=== PATIENT | male | born 1980 | race Two or more races ===

== ENCOUNTER 2018-01-07 11:17 | Emergency (ER) | payer SELFPAY ==
[~2018-01-07 11:17] MED LIST: ACET-3017 PO; AMOX-362 PO; AMOX-559 PO; AMOX500T10 PO; AZIT-1 PO; CARB-91 PO; CEP500 PO; CEPH-13 PO; CEPH250C37 PO; CIP500 PO; CIPR-326 PO; CYCL10TA29 PO; DICL25CA6 PO; GABA-490 PO; HYDR-3503 PO; HYDR-4305 PO; HYDR-4309 PO; HYDR-6016 PO; IBUP600T22 PO; KET10 PO; LISI-362 PO; LISI-374 PO; LISI20TA29 PO; LOR5 PO; LOR5/325 PO; LORA-1455 PO; LORA-1456 PO; METH4TAB66 PO; MULT-885 PO; NO MEDS; ONDA4TAB PO; OXYC-865 PO; OXYC1TAB54 GT; OXYM15MI14 NS; PENI-24 PO; PER PO; PRED20TA6 PO; PRO25 PO; PROM-110 PO; SERT25TA87 PO; TOP25 PO; TOPI-120 PO; TOPI-121 PO; TOPI50TA99 PO; TRA50 PO; TRAM-420 PO; TRAM-627 PO; zyrtec
[2018-01-07 11:20] VITALS: BP 157/101
--- NOTE | 2018-01-07 11:25 | ER Report ---
History and Physical Time Seen By MD: 11:25 HPI/ROS CHIEF COMPLAINT: Suicide attempt HISTORY OF PRESENT ILLNESS: This is a 37-year-old male who presents to the emergency department via police for suicidal attempt. Patient states that over the last several months he has been dealing with his mothers dementia he moved up briefly from [place] to [place] to help with her in the house as well as his and 2 kids, his and 2 kids decided to go back to [place]. HEENT his have been having some problems at home and the patient states that with the decline in support and all the stressors with his family he finally reached a "breaking point" and over the last couple days has had some thoughts of suicide on [place] kill himself, he decided on hanging himself. Patient states that he did screw a board to the ceiling, he thought that the screws were in the studs and wrapped appropriate around the board put the news around his neck and step-off chair and the port broke and he fell to the ground. Patient states he had a brief loss of consciousness and when he came to he sat on the couch. He also states that prior to the himself he was on the phone with his and when having up she called 911 alerting the police department. When they arrived they were pounding on the door patient opened the door and he did come to the emergency department qualitatively. The police did detain him. Patient does have ligature tiwari around his neck. Patient is alert and oriented at this time. Patient is in no distress and cooperative. Patient denies any recent chest pain or shortness of breath, headaches or illnesses. REVIEW OF SYSTEMS: Constitutional: No fever, no chills. Eyes: No discharge. ENT: No sore throat. Cardiovascular: No chest pain, no palpitations. Respiratory: No cough, no shortness of breath. Gastrointestinal: No abdominal pain, no vomiting. Genitourinary: No hematuria. Musculoskeletal: No back pain. Skin: As above. Neurological: No headache. Psych: As above. Allergies: Coded Allergies: celecoxib (Verified Allergy, Mild, HIVES, 01/07/18) ibuprofen (Verified Allergy, Mild, hives, 01/07/18) Shellfish (Verified Allergy, Unknown, THROAT ITCHES AND HIVES, 01/07/18) Home Meds Discontinued Reported Medications Topiramate (TOPAMAX) 100 Mg Tablet, 100 MG PO BID 03/27/16 Lisinopril (LISINOPRIL) 40 Mg Tablet, 40 MG PO QDAY, TAB 03/27/16 Discontinued Scripts Prednisone (PREDNISONE) 20 Mg Tablet, 20 MG PO BID, #9 TAB Prov:[facility] 03/27/16 Ondansetron (ZOFRAN ODT) 4 Mg Tab.rapdis, 4 MG PO Q6H Y for NAUSEA/VOMITING, # 20 TAB.DACIA Prov:[facility] 03/27/16 Azithromycin (ZITHROMAX) 250 Mg Tablet, 1 TAB PO QDAY, #4 TAB Prov:[facility] 03/27/16 Oxycodone Hcl/Acetaminophen (PERCOCET 5-325 MG TABLET) 1 Each Tablet, 1 EACH PO Q4-6H Y for PAIN, #12 TAB Prov:[facility] 03/27/16 Tramadol Hcl (TRAMADOL HCL) 50 Mg Tablet, 50 MG PO Q4-6H Y for PAIN, #12 TAB Prov:[facility] 03/26/16 Past Medical/Surgical History Patient has a past medical and surgical history of seizures, migraines, hypertension, depression, suicide attempt, left knee surgery. Reviewed Nurses Notes: Yes Hx Smoking: No Smoking Status: Never Smoker Exposure to Second Hand Smoke?: No Hx Substance Use Disorder: No Hx Alcohol Use: No Constitutional Vital Sign - Last 24 Hours 01/07/18 11:20 Temp 98.2 Pulse 94 Resp 18 B/P (MAP) 157/101 Pulse Ox 95 O2 Delivery Room Air Physical Exam General Appearance: The patient is alert, has no immediate need for airway protection and no signs of toxicity. Eyes: Pupils equal and round no pallor or injection. Nose subconjunctival hemorrhage. ENT, Mouth: Mucous membranes are moist. No hemotympanum. Respiratory: There are no retractions, lungs are clear to auscultation. Cardiovascular: Regular rate and rhythm, no murmurs, clicks or rubs. No bruits. Gastrointestinal: Abdomen is soft and non tender, no masses, bowel sounds normal. Neurological: Alert and oriented 4. Moving all extremities. Following all commands. No focal neuro deficits. Cranial nerves II through XII intact. Skin: Warm and dry, no rashes. Ligature tiwari to the neck no crepitus or obvious deformities. Musculoskeletal: Neck is supple non tender. No crepitus or obvious deformities , no step-offs to the C-spine. Extremities are nontender, nonswollen and have full range of motion. [ ] DIFFERENTIAL DIAGNOSIS: After history and physical exam differential diagnosis was considered for suicide attempt. Medical Decision Making Data Points Result Diagram: 01/07/18 1130 01/07/18 1130 Laboratory Hematology Test 01/07/18 11:30 01/07/18 12:58 Red Blood Count 5.93 M/uL (4.00-5.60) Mean Corpuscular Volume 85.1 fL (80.0-96.0) Mean Corpuscular Hemoglobin 29.6 pg (26.0-33.0) Mean Corpuscular Hemoglobin Concent 34.8 g/dL (32.0-36.0) Red Cell Distribution Width 12.8 % (11.5-14.5) Mean Platelet Volume 9.1 fL (7.2-11.1) Neutrophils (%) (Auto) 60.9 % (39.4-72.5) Lymphocytes (%) (Auto) 24.0 % (17.6-49.6) Monocytes (%) (Auto) 8.6 % (4.1-12.4) Eosinophils (%) (Auto) 5.0 % (0.4-6.7) Basophils (%) (Auto) 1.5 % (0.3-1.4) Nucleated RBC Relative Count (auto) 0.7 /100WBC Neutrophils # (Auto) 3.2 K/uL (2.0-7.4) Lymphocytes # (Auto) 1.3 K/uL (1.3-3.6) Monocytes # (Auto) 0.5 K/uL (0.3-1.0) Eosinophils # (Auto) 0.3 K/uL (0.0-0.5) Basophils # (Auto) 0.1 K/uL (0.0-0.1) Nucleated RBC Absolute Count (auto) 0.04 K/uL Sodium Level 141 mmol/L (137-145) Potassium Level 3.6 mmol/L (3.5-5.0) Chloride Level 97 mmol/L (98-107) Carbon Dioxide Level 31 mmol/L (22-30) Blood Urea Nitrogen 16 mg/dl (9-21) Creatinine 1.00 mg/dl (0.66-1.25) Glomerular Filtration Rate Calc > 60.0 Random Glucose 89 mg/dl (75-110) Calcium Level 9.7 mg/dl (8.4-10.2) Magnesium Level 2.1 mg/dl (1.7-2.2) Total Bilirubin 0.3 mg/dl (0.2-1.3) Aspartate Amino Transf (AST/SGOT) 25 U/L (0-35) Alanine Aminotransferase (ALT/SGPT) 28 U/L (0-56) Alkaline Phosphatase 77 U/L (0-126) Total Protein 7.9 gm/dl (6.3-8.2) Albumin 4.2 g/dl (3.5-5.0) Thyroid Stimulating Hormone (TSH) 2.32 uIU/ml (0.46-4.68) Salicylates Level < 10 mg/L Salicylate Last Dose Date unk Acetaminophen Level < 10 ug/ml Serum Alcohol < 10 mg/dl Urine Color Yellow Urine Clarity Clear Urine pH 6.0 pH (4.8-9.5) Urine Specific [place] 1.027 Urine Protein Negative mg/dL (NEGATIVE) Urine Glucose (UA) Negative mg/dL (NEGATIVE) Urine Ketones Negative mg/dL (NEGATIVE) Urine Blood Small (NEGATIVE) Urine Nitrite Negative (NEGATIVE) Urine Bilirubin Negative (NEGATIVE) Urine Urobilinogen Negative mg/dL (0.2-1.9) Urine Leukocyte Esterase Negative (NEGATIVE) Urine RBC 2 /HPF (0-2/HPF) Urine WBC <1 /HPF (0-5/HPF) Urine Squamous Epithelial Cells Few /LPF (</=FEW) Urine Bacteria Negative /HPF (NONE-FEW) Urine Mucus None /HPF (NONE-FEW) Urine Opiates Screen Negative Urine Barbiturates Screen Negative Ur Tricyclic Antidepressants Screen Negative Urine Phencyclidine Screen Negative Urine Amphetamines Screen Positive Urine Benzodiazepines Screen Negative Urine Cocaine Screen Negative Urine Cannabinoids Screen Negative Chemistry Test 01/07/18 11:30 01/07/18 12:58 White Blood Count 5.3 k/uL (4.5-11.0) Red Blood Count 5.93 M/uL (4.00-5.60) Hemoglobin 17.6 g/dL (14.0-18.0) Hematocrit 50.5 % (42.0-52.0) Mean Corpuscular Volume 85.1 fL (80.0-96.0) Mean Corpuscular Hemoglobin 29.6 pg (26.0-33.0) Mean Corpuscular Hemoglobin Concent 34.8 g/dL (32.0-36.0) Red Cell Distribution Width 12.8 % (11.5-14.5) Platelet Count 231 K/uL (150-450) Mean Platelet Volume 9.1 fL (7.2-11.1) Neutrophils (%) (Auto) 60.9 % (39.4-72.5) Lymphocytes (%) (Auto) 24.0 % (17.6-49.6) Monocytes (%) (Auto) 8.6 % (4.1-12.4) Eosinophils (%) (Auto) 5.0 % (0.4-6.7) Basophils (%) (Auto) 1.5 % (0.3-1.4) Nucleated RBC Relative Count (auto) 0.7 /100WBC Neutrophils # (Auto) 3.2 K/uL (2.0-7.4) Lymphocytes # (Auto) 1.3 K/uL (1.3-3.6) Monocytes # (Auto) 0.5 K/uL (0.3-1.0) Eosinophils # (Auto) 0.3 K/uL (0.0-0.5) Basophils # (Auto) 0.1 K/uL (0.0-0.1) Nucleated RBC Absolute Count (auto) 0.04 K/uL Glomerular Filtration Rate Calc > 60.0 Calcium Level 9.7 mg/dl (8.4-10.2) Magnesium Level 2.1 mg/dl (1.7-2.2) Total Bilirubin 0.3 mg/dl (0.2-1.3) Aspartate Amino Transf (AST/SGOT) 25 U/L (0-35) Alanine Aminotransferase (ALT/SGPT) 28 U/L (0-56) Alkaline Phosphatase 77 U/L (0-126) Total Protein 7.9 gm/dl (6.3-8.2) Albumin 4.2 g/dl (3.5-5.0) Thyroid Stimulating Hormone (TSH) 2.32 uIU/ml (0.46-4.68) Salicylates Level < 10 mg/L Salicylate Last Dose Date unk Acetaminophen Level < 10 ug/ml Serum Alcohol < 10 mg/dl Urine Color Yellow Urine Clarity Clear Urine pH 6.0 pH (4.8-9.5) Urine Specific [place] 1.027 Urine Protein Negative mg/dL (NEGATIVE) Urine Glucose (UA) Negative mg/dL (NEGATIVE) Urine Ketones Negative mg/dL (NEGATIVE) Urine Blood Small (NEGATIVE) Urine Nitrite Negative (NEGATIVE) Urine Bilirubin Negative (NEGATIVE) Urine Urobilinogen Negative mg/dL (0.2-1.9) Urine Leukocyte Esterase Negative (NEGATIVE) Urine RBC 2 /HPF (0-2/HPF) Urine WBC <1 /HPF (0-5/HPF) Urine Squamous Epithelial Cells Few /LPF (</=FEW) Urine Bacteria Negative /HPF (NONE-FEW) Urine Mucus None /HPF (NONE-FEW) Urine Opiates Screen Negative Urine Barbiturates Screen Negative Ur Tricyclic Antidepressants Screen Negative Urine Phencyclidine Screen Negative Urine Amphetamines Screen Positive Urine Benzodiazepines Screen Negative Urine Cocaine Screen Negative Urine Cannabinoids Screen Negative Toxicology Test 01/07/18 11:30 01/07/18 12:58 Salicylates Level < 10 mg/L Salicylate Last Dose Date unk Acetaminophen Level < 10 ug/ml Serum Alcohol < 10 mg/dl Urine Opiates Screen Negative Urine Barbiturates Screen Negative Ur Tricyclic Antidepressants Screen Negative Urine Phencyclidine Screen Negative Urine Amphetamines Screen Positive Urine Benzodiazepines Screen Negative Urine Cocaine Screen Negative Urine Cannabinoids Screen Negative Urinalysis Test 01/07/18 12:58 Urine Color Yellow Urine Clarity Clear Urine pH 6.0 pH (4.8-9.5) Urine Specific [place] 1.027 Urine Protein Negative mg/dL (NEGATIVE) Urine Glucose (UA) Negative mg/dL (NEGATIVE) Urine Ketones Negative mg/dL (NEGATIVE) Urine Blood Small (NEGATIVE) Urine Nitrite Negative (NEGATIVE) Urine Bilirubin Negative (NEGATIVE) Urine Urobilinogen Negative mg/dL (0.2-1.9) Urine Leukocyte Esterase Negative (NEGATIVE) Urine RBC 2 /HPF (0-2/HPF) Urine WBC <1 /HPF (0-5/HPF) Urine Squamous Epithelial Cells Few /LPF (</=FEW) Urine Bacteria Negative /HPF (NONE-FEW) Urine Mucus None /HPF (NONE-FEW) EKG/Imaging Imaging Location: [facility] [place] Patient: Benjamin Soto : 1980 Visit/Account:[id number] Date of Sevice: 01/07/2018 Examination: C-SPINE W/O CONTRAST, NECK SOFT TISSUE W CONTRAST Comparison: None. History: s/p hanging, cervical spine pain Procedure: Noncontrast multiplanar imaging of the cervical spine followed by contrast-enhanced soft tissue neck CT with 75 mL intravenous Isovue 370. One of the following dose optimization techniques was utilized in the performance of this exam: Automated exposure control; adjustment of the mA and/ or kV according to the patient's size; or use of an iterative reconstruction technique. Specific details can be referenced in the facility's radiology CT exam operational policy. Findings: CT cervical spine without contrast: Cervical vertebral body height and alignment is within normal limits. Atlantoaxial, craniocervical, facet, and cervicothoracic alignment is maintained. No vertebral body or posterior neural arch fracture. Disc spaces are within normal limits. No evidence of canal or foraminal narrowing. Visualized contents of the posterior fossa are unremarkable. CT soft tissue neck with contrast: Prevertebral and paraspinal soft tissues are within normal limits with no focal region of soft tissue inflammation. The major cervical vessels appear grossly normal. Salivary glands are symmetric and within normal limits. Parapharyngeal space fat is unremarkable. Thyroid is unremarkable. There are no pathologically enlarged lymph nodes. Airway is unremarkable. Visualized posterior fossa is unremarkable. Mild mucosal thickening along the visualized right nasal passage. Otherwise, the visualized paranasal sinuses and mastoid air cells are clear and well aerated. Multifocal dental disease with multiple dental caries and periapical erosions. Visualized upper thorax is unremarkable. IMPRESSION: 1. Negative cervical spine CT. 2. No evidence of acute disease in the cervical soft tissues. Of note, the cervical vasculature appears grossly normal but given the history, if there is a significant concern for arterial pathology this would be better characterized by CTA. 3. Severe chronic dental disease. Results were discussed with RAMYA SANTOS at 01/07/2018 1:03 PM. Report Dictated By: Yomi Benito MD at 01/07/2018 12:45 PM Report E-Signed By: Yomi Benito MD at 01/07/2018 1:05 PM WSN:[id number] Location: [facility] [place] Patient: Benjamin Soto : 1980 Visit/Account:[id number] Date of Sevice: 01/07/2018 Examination: C-SPINE W/O CONTRAST, NECK SOFT TISSUE W CONTRAST Comparison: None. History: s/p hanging, cervical spine pain Procedure: Noncontrast multiplanar imaging of the cervical spine followed by contrast-enhanced soft tissue neck CT with 75 mL intravenous Isovue 370. One of the following dose optimization techniques was utilized in the performance of this exam: Automated exposure control; adjustment of the mA and/ or kV according to the patient's size; or use of an iterative reconstruction technique. Specific details can be referenced in the facility's radiology CT exam operational policy. Findings: CT cervical spine without contrast: Cervical vertebral body height and alignment is within normal limits. Atlantoaxial, craniocervical, facet, and cervicothoracic alignment is maintained. No vertebral body or posterior neural arch fracture. Disc spaces are within normal limits. No evidence of canal or foraminal narrowing. Visualized contents of the posterior fossa are unremarkable. CT soft tissue neck with contrast: Prevertebral and paraspinal soft tissues are within normal limits with no focal region of soft tissue inflammation. The major cervical vessels appear grossly normal. Salivary glands are symmetric and within normal limits. Parapharyngeal space fat is unremarkable. Thyroid is unremarkable. There are no pathologically enlarged lymph nodes. Airway is unremarkable. Visualized posterior fossa is unremarkable. Mild mucosal thickening along the visualized right nasal passage. Otherwise, the visualized paranasal sinuses and mastoid air cells are clear and well aerated. Multifocal dental disease with multiple dental caries and periapical erosions. Visualized upper thorax is unremarkable. IMPRESSION: 1. Negative cervical spine CT. 2. No evidence of acute disease in the cervical soft tissues. Of note, the cervical vasculature appears grossly normal but given the history, if there is a significant concern for arterial pathology this would be better characterized by CTA. 3. Severe chronic dental disease. Results were discussed with RAMYA SANTOS at 01/07/2018 1:03 PM. Report Dictated By: Yomi Benito MD at 01/07/2018 12:45 PM Report E-Signed By: Yomi Benito MD at 01/07/2018 1:05 PM WSN:[id number] ED Course/Re-evaluation Clinical Indication for ER IV: IV Access ED Course The patient was admitted to room. A history and physical obtained. Differential diagnoses were considered. An IV was started. A CT with contrast of the neck was negative for any acute findings. Negative C-spine patient's c-collar was removed as noted below. Patient's labs were unremarkable. Patient talk screen was positive for amphetamines, I did speak to the patient about this patient states he's been using a nasal decongestant and has never used amphetamines or methamphetamine. I also talked to the patient about the results of his CTs patient was relieved. Patient is having some neck pain, I did tell patient that he will likely have some neck discomfort for the next several days. The patient' s was changed into behavioral health scrubs. The patient had no other questions or concerns at this time and was admitted to behavioral health unit. 01/07/2018 1:10:46 pm I did receive a call from radiology, he stated that the C -spine was clear no acute findings. Incidental finding was the poor dentition and significant dental disease which I did inform the patient of. The patient's c-collar was removed. Patient was able to rotate from right to left and had good extension and flexion of the cervical spine. 01/07/2018 1:45:26 pm I did speak with Dr. Lozoya regarding the patient's case , he is accepted the patient into the behavioral health unit for suicide attempt. Decision to Disposition Date: Jan 07, 2018 Decision to Disposition Time: 13:35 Depart Departure Latest Vital Signs Vital Signs Date Time Temp Pulse Resp B/P (MAP) Pulse Ox O2 Delivery O2 Flow Rate FiO2 01/07/18 11:20 98.2 94 18 157/101 95 Room Air Impression: Primary Impression: Suicide attempt by hanging Condition: Improved Disposition: HOME OR SELF-CARE Problem Qualifiers Primary Impression: Suicide attempt by hanging Encounter type: initial encounter Qualified Codes: T71.162A - Asphyxiation due to hanging, intentional self-harm, initial encounter RAMYA SANTOS [facility] DIRECTOR-BC Jan 07, 2018 11:25
[2018-01-07 11:42] LABS: PLATELET COUNT, AUTOMATED 231 K/uL (150-450)
[2018-01-07] MEDS ORDERED: IOPAMIDOL 76% 75 ML INFUS BTL 75 ML ONE (12:03)
--- NOTE | 2018-01-07 13:09 | RADIOLOGY IMAGING REPORT ---
FACILITY: [facility] [place] PATIENT NAME: Benjamin Soto : 1980 MR: [id number] V: [id number] EXAM DATE: ORDERING PHYSICIAN: RAMYA SANTOS TECHNOLOGIST: Location: [facility] Patient: Benjamin Soto : 1980 Visit/Account:[id number] Date of Sevice: 01/07/2018 Examination: C-SPINE W/O CONTRAST, NECK SOFT TISSUE W CONTRAST Comparison: None. History: s/p hanging, cervical spine pain Procedure: Noncontrast multiplanar imaging of the cervical spine followed by contrast-enhanced soft t issue neck CT with 75 mL intravenous Isovue 370. One of the following dose optimization techniques was utilized in the performance of this exam: Autom ated exposure control; adjustment of the mA and/or kV according to the patient's size; or use of an i terative reconstruction technique. Specific details can be referenced in the facility's radiology C T exam operational policy. Findings: CT cervical spine without contrast: Cervical vertebral body height and alignment is within normal paige its. Atlantoaxial, craniocervical, facet, and cervicothoracic alignment is maintained. No vertebral b jair or posterior neural arch fracture. Disc spaces are within normal limits. No evidence of canal or foraminal narrowing. Visualized content s of the posterior fossa are unremarkable. CT soft tissue neck with contrast: Prevertebral and paraspinal soft tissues are within normal limits with no focal region of soft tissue inflammation. The major cervical vessels appear grossly normal. Salivary glands are symmetric and within normal limits. Parapharyngeal space fat is unremarkable. Thy roid is unremarkable. There are no pathologically enlarged lymph nodes. Airway is unremarkable. Visualized posterior fossa is unremarkable. Mild mucosal thickening along the visualized right nasal passage. Otherwise, the visualized paranasal sinuses and mastoid air cells are clear and well aerated . Multifocal dental disease with multiple dental caries and periapical erosions. Visualized upper thorax is unremarkable. IMPRESSION: 1. Negative cervical spine CT. 2. No evidence of acute disease in the cervical soft tissues. Of note, the cervical vasculature appea rs grossly normal but given the history, if there is a significant concern for arterial pathology thi s would be better characterized by CTA. 3. Severe chronic dental disease. Results were discussed with RAMYA SANTOS at 01/07/2018 1:03 PM. Report Dictated By: Yomi Benito MD at 01/07/2018 12:45 PM Report E-Signed By: Yomi Benito MD at 01/07/2018 1:05 PM WSN:[id number]
--- NOTE | 2018-01-07 13:09 | RADIOLOGY IMAGING REPORT ---
FACILITY: [facility] PATIENT NAME: Benjamin Soto : 1980 MR: [id number] V: [id number] EXAM DATE: ORDERING PHYSICIAN: RAMYA SANTOS TECHNOLOGIST: Location: [facility] [place] Patient: Benjamin Soto : 1980 Visit/Account:[id number] Date of Sevice: 01/07/2018 Examination: C-SPINE W/O CONTRAST, NECK SOFT TISSUE W CONTRAST Comparison: None. History: s/p hanging, cervical spine pain Procedure: Noncontrast multiplanar imaging of the cervical spine followed by contrast-enhanced soft t issue neck CT with 75 mL intravenous Isovue 370. One of the following dose optimization techniques was utilized in the performance of this exam: Autom ated exposure control; adjustment of the mA and/or kV according to the patient's size; or use of an i terative reconstruction technique. Specific details can be referenced in the facility's radiology C T exam operational policy. Findings: CT cervical spine without contrast: Cervical vertebral body height and alignment is within normal paige its. Atlantoaxial, craniocervical, facet, and cervicothoracic alignment is maintained. No vertebral b jair or posterior neural arch fracture. Disc spaces are within normal limits. No evidence of canal or foraminal narrowing. Visualized content s of the posterior fossa are unremarkable. CT soft tissue neck with contrast: Prevertebral and paraspinal soft tissues are within normal limits with no focal region of soft tissue inflammation. The major cervical vessels appear grossly normal. Salivary glands are symmetric and within normal limits. Parapharyngeal space fat is unremarkable. Thy roid is unremarkable. There are no pathologically enlarged lymph nodes. Airway is unremarkable. Visualized posterior fossa is unremarkable. Mild mucosal thickening along the visualized right nasal passage. Otherwise, the visualized paranasal sinuses and mastoid air cells are clear and well aerated . Multifocal dental disease with multiple dental caries and periapical erosions. Visualized upper thorax is unremarkable. IMPRESSION: 1. Negative cervical spine CT. 2. No evidence of acute disease in the cervical soft tissues. Of note, the cervical vasculature appea rs grossly normal but given the history, if there is a significant concern for arterial pathology thi s would be better characterized by CTA. 3. Severe chronic dental disease. Results were discussed with RAMYA SANTOS at 01/07/2018 1:03 PM. Report Dictated By: Yomi Benito MD at 01/07/2018 12:45 PM Report E-Signed By: Yomi Benito MD at 01/07/2018 1:05 PM WSN:[id number]
--- NOTE | 2018-01-07 15:51 | BHS - Psychiatric Evaluation ---
ER - Title 25 MHE Evaluation Title 25 Evaluation Patient Detained By: Law Enforcement Referral Source: Ileana Date Patient Detained: Jan 07, 2018 Time Patient Detained: 12:00 Date Usp Expires: Jan 10, 2018 Time Usp Expires: 12:00 Legal Status: Police Hold: Yes Legal Status: Residence: Other (States he is a resident of [place]) Assessment Data Provided By: Patient, Law Enforcement HPI/ROS: Please refer to my doccumentation. Admit due to SI or Attempt: Yes Suicide Plan: Has Plan with Access Current Suicide Plan Patient attempted to hang himself, the materials he used to secure the rope to the ceiling broke and he fell to the ground. His , who he was on the phone with in [place], called 911, PD responded and the patient opened the door and was transported to the ED. Alcohol or Drugs Involved: No Is Patient Info Reliable: Yes Is Collateral Info Reliable: Yes Current Home Psych Meds: none Mental Status Exam General Appearance: Well Groomed, Good Eye Contact, Cooperative, Polite, Good Interaction Speech: Clear, Spontaneous, Normal Rate, Normal Rhythm, Normal Volume, Normal Tone Mood: No Dysthmic/Depressed, No Euthymic, No Hyperthymic, No Other Affect: Full and Appropriate Thought Process: Organized, Logical, Goal Directed, No Loose Associations, No Flight of Ideas Thought Content: Suicidal Ideation, No Homicidal Ideation, No Delusions, No Auditory Halllucinations, No Visual Hallucinations, No Thought Broadcasting, No Ideas of Reference, No Obsessions, No Compulsions Sensorium: Clear, No Other Cognition: Alert & Oriented-Person, Alert & Oriented-Place, Alert & Oriented- Time, Tdnnh-[id number]-[id number] Memory: Recent Insight Judgment: Intact, Appropriate Sleep: Normal Hallucinations: No Denies Delusions: Denies Current Risk & History Current Dangerous Risk Assessm: Current Suicide Attempt Past Dangerous Risk Assessm: Other (Suicide attempt approximately 3.5 years ago.) Prior Alcohol/Drug Abuse Heroin, methadone. Previous Suicide Attempt: Past - High Lethality Previous Psychiatric Illness: Yes Previous Psychiatric Treatment: Yes Risk Assessment & Disposition Evaluated Risk Assessment: At risk for high lethality of suicide. Impression: Primary Impression: Suicide attempt by hanging Meets Mental Illness Req.: Yes Meets Dangerousness Req.: Yes Emergency Usp to be: Upheld Date of Decision: Jan 07, 2018 Time of Decision: 13:49 Patient is Medically Stable at: Yes Disposition: [facility] Problem Qualifiers Primary Impression: Suicide attempt by hanging Encounter type: initial encounter Qualified Codes: T71.162A - Asphyxiation due to hanging, intentional self-harm, initial encounter RAMYA SANTOS BOOSTER OPERATOR- Jan 07, 2018 15:51
== END 2018-01-07 15:05 | disposition home or self-care (01) ==
LOC: ER 11:27
DX: T71.162A Asphyxiation due to hanging, intentional self-harm, initial encounter (principal); R55 Syncope and collapse; M54.2 Cervicalgia
CPT/HCPCS: 70491; 72125; 80305; 80320; 80329; 81001; 83735; 84443; 85025; 99284; L0172; Q9967; 82040; 82247; 82310; 82374; 82435; 82565; 82947; 84075; 84132; 84155; 84295; 84450; 84460; 84520

== ENCOUNTER 2018-01-07 13:48 | Inpatient (IN) | payer SELFPAY ==
[~2018-01-07] VITALS: Ht 170.2 cm; Wt 88.5 kg
[2018-01-07] MEDS ORDERED: MAG HYD/AL HYD/SIMETH 30ML UDC PO PRN (14:10)
[2018-01-07] MEDS ORDERED: ACETAMINOPHEN 325 MG TAB PO PRN (14:10)
[2018-01-07 15:20] VITALS: BP 147/112
--- NOTE | 2018-01-07 15:36 | BHS - Psychiatric Evaluation ---
ER - Title 25 MHE Evaluation Title 25 Evaluation Patient Detained By: Law Enforcement Referral Source: Professional: Law Enforcement Date Patient Detained: Jan 07, 2018 Time Patient Detained: : Date Long Term Expires: Jan 10, 2018 Time Long Term Expires: Legal Status: Police Hold: Yes (Patient has an active warrant.) Legal Status: Residence: [facility] Resident, State Resident Assessment Data Provided By: Patient, Law Enforcement, Other Source ([facility]) HPI/ROS: Per ER COMPOUND FINISHER - Bc, Donte Wright, "This is a 37-year-old male who presents to the emergency department via police for suicidal attempt. Patient states that over the last several months he has been dealing with his mothers dementia he moved up briefly from [place] to [place] to help with her in the house as well as his and 2 kids, his and 2 kids decided to go back to [place]. He and his have been having some problems at home and the patient states that with the decline in support and all the stressors with his family he finally reached a "breaking point" and over the last couple days has had some thoughts of suicide on [place] kill himself, he decided on hanging himself. Patient states that he did screw a board to the ceiling, he thought that the screws were in the studs and wrapped appropriate around the board put the news around his neck and step-off chair and the port broke and he fell to the ground. Patient states he had a brief loss of consciousness and when he came to he sat on the couch. He also states that prior to the himself he was on the phone with his and when having up she called 911 alerting the police department. When they arrived they were pounding on the door patient opened the door and he did come to the emergency department qualitatively. The police did detain him. Patient does have ligature tiwari around his neck. Patient is alert and oriented at this time. Patient is in no distress and cooperative. Patient denies any recent chest pain or shortness of breath, headaches or illnesses." Admit due to SI or Attempt: Yes Suicide Plan: Has Plan with Access (Created a spot where he fashioned a noose.) Alcohol or Drugs Involved: No (Patient has been a couple months without methadone, and says he has been experiencing great emotional lability and agitation as a result.) Is Patient Info Reliable: Yes Is Collateral Info Reliable: Yes Current Home Psych Meds: Does not report any at this time. Mental Status Exam General Appearance: Good Eye Contact, Cooperative, Polite, Good Interaction Speech: Clear Mood: Dysthmic/Depressed Affect: Sad, Tearful, Anxious Thought Process: Organized Thought Content: Suicidal Ideation Cognition: Alert & Oriented-Person, Alert & Oriented-Place, Alert & Oriented- Time Memory: Immediate, Recent, Remote Insight Judgment: Poor Sleep: Normal Hallucinations: Denies Delusions: Denies Current Risk & History Current Dangerous Risk Assessm: Current Suicide Ideation (Says he felt upset with himself immediately after her suicide attempt. Said he had promised himself after he tried to hang himself in 2013, that he woudl never try to take his life again. ), Protective Factors Past Dangerous Risk Assessm: Suicide Ideation-last 6mo Prior Alcohol/Drug Abuse Patient was receiving methadone care regimen until a few months ago when he moved from [place] to [place]. he had not been able to find a methadone clinic in [place] right away. Previous Suicide Attempt: Past - High Lethality (October 11, 2013 patient tried to hang himself, and was nearly successful. ) Number of Attempts/Description 1 prior hanging attempt. Previous Psychiatric Illness: Yes Previous Psychiatric Treatment: Yes (Major Depression, Generalized Anxiety, Dependent Personality) Previous Treatment Description Patient was hospitalized at [facility] in 2013 for a similar presentation. Risk Assessment & Disposition Evaluated Risk Assessment: Patient risk assessment is evaluated as high. He tried to take his life by hanging himself, and reports terribly despondency leading up to this attept, especially problems with his and her taking their children, and his mother suffering from dementia. Impression: Primary Impression: Suicide attempt by hanging Meets Mental Illness Req.: Yes Meets Dangerousness Req.: Yes Emergency Long Term to be: Upheld Decision Comment: Patient retirement is upheld especially because patient nearly ended his life intentionally by hanging himself. This is the second known retirement and subsequent psychiatric hospitalization for this patient. The occasion prior was a very similar presentation. He reports no current outpatient support. A structured safe environment is needed to help patient at this time. Patient said his stressors became unmanageable for him. He is currently assessed as unstable. He reports very high anxiety, and patient meets most criterion for a severe depressive disorder. Date of Decision: Jan 07, 2018 Time of Decision: 16:34 Patient is Medically Stable at: Yes Disposition: [facility] Jan 07, 2018 15:36
[2018-01-07] MEDS: traMADol 50 MG TAB PO PRN (17:24)
[2018-01-07 19:51] VITALS: BP 115/70
[2018-01-08 02:49] VITALS: BP 114/71
[2018-01-08] MEDS: traMADol 50 MG TAB PO PRN (02:49)
[2018-01-08 07:23] VITALS: BP 123/81
[2018-01-08] MEDS: MULTIVITAMINS TAB PO SCH (08:25)
[2018-01-08 16:00] VITALS: BP 124/96
--- NOTE | 2018-01-08 17:05 | HISTORY AND PHYSICAL ---
DATE OF ADMISSION: January 07, 2018 Patient was seen on the morning of January 08, 2018 at approximately 1100 hours. HISTORY OF PRESENT ILLNESS This is a 37-year-old male who reports an impulsive parasuicidal attempt. Patient put a ligature around his neck, but appears to have broken the mounting point very easily as it was mounted to drywall. Patient was talking to his on the phone who had left the [facility] two to three days ago. She went back to [place]. Patient reports being frustrated living in [place]. Patient states he is here to take care of his mother. He is also worried about his father, as patient reports his mother is suffering from the early stages of dementia and she has kicked his dad out of the house and they are now getting a divorce. The patient reports that "everything came down on me." He impulsively went and tried to hang himself. This notably is very similar to an admission the patient has had here on one previous occasion in 2013. Patient states he slept good the night before the interview on the unit. Patient reports he is better, denying currently any symptoms. Patient is under an emergency detainment. We will make contact with his . Patient reports overall that things have been going well for him, although again he admits to stressors. Patient not working currently, having some financial stressors. 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 Patient has been living the last three years in [place], recently returning to the [facility]. Patient denies any other symptoms of psychiatric concern. Patient does admit that he has been on methadone recently in [place] and is a recovering heroin addict. MENTAL HEALTH HISTORY Patient reports one previous hospitalization here in 2013. He has been going to [facility] in the past. Patient is not currently enrolled. Patient has one other very similar admission for an attempt at hanging by ligature in 2013. Please see electronic record. Patient reports recently coming off of heroin and being treated through a methadone clinic in [place], but has no pills now. FAMILY PSYCHIATRIC HISTORY Patient's mother suffered from depression. Patient's grandfather and brother suffered from alcoholism. There was a family suicide in a cousin on the father' s side. PAST MEDICAL HISTORY Significant of past history of "seizures." Patient having difficulty explaining the exact seizure disorder. Patient allergic to SHELLFISH, CELEBREX and IBUPROFEN. Patient reports taking Topamax in the past which was helpful for any anxious symptoms, as well as control of "seizures," but patient reports not taking it now and not desiring to. SOCIAL HISTORY Patient was born in [place], [place], raised here in [place]. Parents were at the time of his . He states he is the youngest of five children and that his older siblings do not help in the care for his mother. Patient becoming very tearful when talking of his relationship with his mother. Patient is a high school graduate. He did some college in computer studies. Patient has worked in the [employer] industry and most recently in the construction industry. He has been for at least the second time now for approximately two years. Patient reports having two other children in [place] and two sons with is current of two years, and patient reports five children total. Patient does report some relational problems currently with his , as they recently "had to move to [place] to help with his mother, " and this has been very difficult for her. LEGAL HISTORY Patient reports some what appears to be overall minor legal history. No significant legal problems exist. SUBSTANCE ABUSE HISTORY Patient reports being addicted to heroin in the recent history and prescribed methadone in a [place] clinic. Patient has admitted to other drug use in the past as well. It is notable that patient's screen was positive for amphetamines upon admission, but patient denies using any amphetamines other than [id number] nasal remedies that could possible trigger a false positive, although patient's blood pressure was elevated and he appeared once on the unit to go into a crash and blood pressure fell accordingly. PHYSICAL EXAMINATION GENERAL: Please see emergency room note. Notable for a cooperative, polite 37- year-old male. VITAL SIGNS: At the time of admission, temperature 98.2, pulse 94, respiratory rate 18, blood pressure 157/101, pulse oximetry 95 on room air. LABORATORY DATA CBC overall unremarkable. CMP unremarkable as well. TSH 2.32. Urinalysis did show small urine blood, otherwise unremarkable. Toxicology screen positive for amphetamines, which patient denies using. Negative for any substances of abuse. No serum alcohol present. IMAGING Imaging of cervical spine and soft tissue of the neck was unremarkable. Patient having some chronic dental disease. MENTAL STATUS EXAMINATION GENERAL APPEARANCE, BEHAVIOR AND ATTITUDE: This is a cooperative well-groomed 37-year-old male, making good eye contact. Brief periods of tearfulness when talking about his relationship with his mother. No bizarre mannerisms or tics. SPEECH: Within normal limits, regular rate, rhythm volume and tone. MOOD: Described as good. AFFECT: Full and bright and overall mood congruent. THOUGHT PROCESSES: Logical, goal directed. Patient seemingly making a plea for getting out of his emergency detainment at this time. No loose associations or flight of ideas. THOUGHT CONTENT: Free of auditory or visual hallucinations, ideas of reference , thought broadcastings, delusions, obsessions, compulsions. Negative for current suicidal or homicidal ideation. Patient admitting freely to parasuicidal behaviors and ideation prior to admission. SENSORIUM: Clear. COGNITION: Alert and oriented to person, place, time and situation. MEMORY: Immediate, recent and remote estimated intact. INTELLIGENCE: Average based on interview. INSIGHT AND JUDGMENT: Considered currently limited secondary to underlying stressors and recent parasuicidal event. ASSESSMENT This is a cooperative 37-year-old male who overall appears to be an accurate historian. Patient may be distorting the truth when it comes to amphetamine use. Patient admitting to staying up for three to four days prior to coming to the unit after parasuicidal event. Patient's blood pressure noted to be elevated at the time of admission as well. We will continue to try to evaluate and we will get in touch with collateral information sources. DIAGNOSES PER DSM-V Adjustment disorder, depressed mood. Rule out persisting depressive disorder. Opiate use disorder per history. Employment, financial stressors. PLAN 1. Admit to the unit. 2. Necessary precautions to be implemented. 3. Patient will participate in individual and group therapy. 4. Medications to be adjusted, titrated accordingly. 5. Collateral information to be obtained as necessary. 6. Estimated length of stay three to five days. MTDD
[2018-01-08 20:00] VITALS: BP 127/78
[2018-01-09] MEDS: traMADol 50 MG TAB PO PRN ×3 (02:08→14:48)
[2018-01-09 04:41] VITALS: BP 116/80
[2018-01-09] MEDS: MULTIVITAMINS TAB PO SCH (08:25)
[2018-01-09] MEDS ORDERED: MULT-1379 PO (13:44)
--- NOTE | 2018-01-10 18:13 | DISCHARGE SUMMARY ---
Patient was seen at approximately 1100 hours on the morning of January 09, 2018 for note concerning this dictation. FINAL DIAGNOSES PER DSM-V Adjustment disorder with depressed mood. Rule out persisting depressive disorder. Opiate use disorder currently in partial remission. Employment, financial stressors. Rule out other substance use disorder. Relational problem. Financial stressors. REASON FOR ADMISSION This is an overall pleasant, cooperative 37-year-old male who had a parasuicidal attempt and was brought to the emergency room under an emergency detainment after having conflict with his on the phone. This was notably a very similar event to what took place around four years ago concerning stressors and parasuicidal attempt. Patient admitted without incident, did take an active role in his treatment. Patient immediately desiring to discharge from the unit, stating he felt fine. Patient was under an emergency detainment and was held until most of this time could be complete. Patient did interact well with his on the unit as well as this provider and other treatment team staff, and they seemed to reconcile their differences. Patient denied any drug use, although it is notable that his amphetamine screen was positive, and that he had significant hypertension at the time of admission, which quickly resolved on the unit. Patient quickly denying any further suicidal thoughts. No parasuicidal behaviors were noticed on the unit, and patient explaining good mood overall. Patient's also had no concerns about his discharge. PHYSICAL EXAMINATION GENERAL: Please see emergency room note. Notable for a 24-year-old male who had made a parasuicidal attempt by hanging. Imaging evaluation of cervical spine and soft tissue of the neck were unremarkable, and patient in no medical distress. VITAL SIGNS: At the time of admission temperature 98,2, pulse 94, respiratory rate 18, blood pressure 157/101 and pulse oximetry 95 on room air. At the time of discharge from [facility], temperature of 97.7, pulse 55, respiratory rate 15, blood pressure 116/80 and pulse oximetry 93 on room air. LABORATORY DATA CBC notable for elevated RBCs at 5.93, otherwise unremarkable. Chemistry panel unremarkable. TSH 2.32. Urinalysis did show small urine blood, otherwise unremarkable. Toxicology screen positive for amphetamines at the time of admission (patient stated he has been using nasal decongestants and Sudafed), and negative for other drugs of abuse, and a nondetectable serum alcohol level. MENTAL STATUS EXAMINATION AT THE TIME OF DISCHARGE GENERAL APPEARANCE, BEHAVIOR AND ATTITUDE: This is a frustrated at times 37- year-old male who is well groomed, but other than that reports good mood. Making good eye contact. No bizarre mannerisms or tics. No periods of tearfulness. Interacting well with this provider, treatment team staff and his present in the room. Overall cooperative. SPEECH: Within normal limits, regular rate, rhythm volume and tone. MOOD: Described as good and improved. AFFECT: Full and mood congruent. THOUGHT PROCESSES: Logical, goal directed. No loose associations or flight of ideas. THOUGHT CONTENT: Free of auditory or visual hallucinations, ideas of reference , thought broadcastings, delusions, obsessions, compulsions. Patient adamantly denying any suicidal or homicidal ideation. SENSORIUM: Clear. COGNITION: Alert and oriented to person, place, time and situation. MEMORY: Immediate, recent and remote estimated intact. INTELLIGENCE: Average based on interview. INSIGHT AND JUDGMENT: Considered grossly intact in the absence of illicit substance use and alcohol use, and appropriate for outpatient care. RESULTS OF TESTING IMAGING: See ER note concerning CT and CTA of the neck which were unremarkable. LABORATORY DATA: See above. CONSULTATIONS: None. TREATMENT Patient received medications, participated in individual and group therapy. HOSPITAL COURSE Patient refusing any medications. Patient admitting, however, to psychologically being dependent on illicit substances, and admitting that he seeks out a pill "for this or that." Patient may have been using amphetamines prior to admission, patient denies. Patient admits to recently coming off methadone treatment out of [place] upon arrival here, and patient admits to psychological desire to continue opiates at some point, but patient understands the risk of doing so. CONDITION OF PATIENT ON DISCHARGE Stable. Considered minimal risk to himself or others and appropriate for outpatient care. DISPOSITION Patient discharged to home. He would follow up with outpatient therapy and abstain from illicit substances and alcohol. Crisis line was given should symptoms return. No medications were prescribed at discharge. Patient was to take multivitamin over the counter daily and abstain from all illicit substances. Risks, benefits and alternatives of the above discharge plan were discussed. Informed consent was given to proceed with above discharge plan by this competent patient and patient's present at the time of discharge. VIKA
== END 2018-01-09 17:15 | disposition home or self-care (01) | DRG 881 ==
LOC: BHS 13:48
PROVIDERS: ADMIT Psychiatry & Neurology Psychiatry; ATTEND Psychiatry & Neurology Psychiatry
DX: F43.21 Adjustment disorder with depressed mood (principal); T71.162A Asphyxiation due to hanging, intentional self-harm, initial encounter; R45.851 Suicidal ideations; I10 Essential (primary) hypertension; F34.1 Dysthymic disorder; F11.10 Opioid abuse, uncomplicated; Y92.008 Other place in unspecified non-institutional (private) residence as the place of occurrence of the external cause; Y99.8 Other external cause status; Z63.0 Problems in relationship with spouse or partner; Z63.6 Dependent relative needing care at home; Z91.013 Allergy to seafood; Z88.8 Allergy status to other drugs, medicaments and biological substances; Z81.1 Family history of alcohol abuse and dependence; Z81.8 Family history of other mental and behavioral disorders; Z56.0 Unemployment, unspecified
CPT/HCPCS: 90853

== ENCOUNTER 2018-07-05 15:04 | Emergency (ER) | payer SELFPAY ==
[~2018-07-05 15:04] MED LIST changes: -HYDR-4305 PO; -HYDR-4309 PO; +HYDR-627 PO; +HYDR-653 PO; +MULT-1379 PO
--- NOTE | 2018-07-05 15:18 | ER Report ---
History and Physical Time Seen By MD: 15:15 Hx. of Stated Complaint: PT HERE FOR ED WITH A POLICE HOLD. PT REPORTED TO ASSOCIATE PRODUCT MANAGER THAT HE WANTED TO KILL HIMSELF. HPI/ROS CHIEF COMPLAINT: Suicidal ideation HISTORY OF PRESENT ILLNESS: This is a 38-year-old male presents to the emergency department, with the [place] [employer] for an emergency snf for SI. Patient was just released from the [place]itent[place] in [place], in penitentiary for a protective order violation, states he and his " amended protective order", was going to see his in a public place this afternoon, there was some confusion about the order, was thought he violated the order, the police arrested him on site. Patient arrives visibly upset and anxious, states his "kids saw him get arrested they've never seen this before". He did tell the officer he wanted to kill himself, he did tell me the same thing, he wanted to kill himself however in a nonviolent type of way, he states he would stop drinking and eating. Patient does state that he is hard broken his is his Leobardo and is very sad that things have ended up this way. Patient is tearful and crying obviously very upset. Denies drinking alcohol. Patient does state that he is a recovering heroin and intact and went to get his Suboxone filled as well as his Prozac on Sunday however he was unable to. Patient denies homicidal ideation. Patient did have a previous suicide attempt in 2013 and he split up from his . Denies chest pain or shortness of breath. No nausea or vomiting. REVIEW OF SYSTEMS: Constitutional: No fever, no chills. Eyes: No discharge. ENT: No sore throat. Cardiovascular: No chest pain, no palpitations. Respiratory: No cough, no shortness of breath. Gastrointestinal: No abdominal pain, no vomiting. Genitourinary: No hematuria. Musculoskeletal: No back pain. Skin: No rashes. Neurological: No headache. Psych: As above. Allergies: Coded Allergies: celecoxib (Verified Allergy, Mild, HIVES, 01/07/18) ibuprofen (Verified Allergy, Mild, hives, 01/07/18) Shellfish (Verified Allergy, Unknown, THROAT ITCHES AND HIVES, 01/07/18) Home Meds Reported Medications Buprenorphine Hcl/Naloxone Hcl (SUBOXONE 8 MG-2 MG SL FILM) 1 Each Film, 1 EACH SL QDAY, FILM 07/05/18 Fluoxetine Hcl (PROZAC) 20 Mg Capsule, 20 MG PO QDAY, CAPSULE 07/05/18 Discontinued Reported Medications Multivits,Th W-Fe,Other Min (THERA-M) 1 Each Tablet, 1 EACH PO QDAY 01/09/18 Past Medical/Surgical History The patient has a past medical and surgical history of depression, suicide attempt. Unable To Obtain Past Medical: Refused Reviewed Nurses Notes: Yes Hx Smoking: No Smoking Status: Never Smoker Exposure to Second Hand Smoke?: No Hx Substance Use Disorder: No Hx Alcohol Use: No Constitutional Vital Sign - Last 24 Hours 07/05/18 07/05/18 07/05/18 07/05/18 15:04 15:06 15:19 15:30 Temp 98.2 Pulse 100 99 113 Resp 18 B/P (MAP) 134/101 148/103 (118) Pulse Ox 92 93 92 O2 Delivery Room Air 07/05/18 07/05/18 07/05/18 07/05/18 15:34 15:49 16:00 16:04 Pulse 110 ? B/P (MAP) ???/??? (0555) Pulse Ox 94 07/05/18 07/05/18 07/05/18 07/05/18 16:19 16:30 16:34 16:49 Pulse ? B/P (MAP) ???/??? (2215) Physical Exam General Appearance: The patient is alert, has no immediate need for airway protection and no signs of toxicity, anxious and tearful. Eyes: Pupils equal and round no pallor or injection. ENT, Mouth: Mucous membranes are moist. Respiratory: There are no retractions, lungs are clear to auscultation. Cardiovascular: Regular rate and rhythm. Gastrointestinal: Abdomen is soft and non tender, no masses, bowel sounds normal. Neurological: Alert and oriented 4. Moving all extremities. Following all commands. No focal neuro deficits. Skin: Warm and dry, no rashes. Musculoskeletal: Neck is supple non tender. Extremities are nontender, nonswollen and have full range of motion. Psych: Patient is obviously upset, tearful, crying making intermittent eye contact, head tipped down towards the floor. Patient is forthcoming with mostly information does seem reliable. DIFFERENTIAL DIAGNOSIS: After history and physical exam differential diagnosis was considered for suicidal ideation, depression. Medical Decision Making Data Points Result Diagram: 07/05/18 1543 07/05/18 1543 Laboratory Hematology Test 07/05/18 15:43 07/05/18 15:56 Red Blood Count 5.64 M/uL (4.00-5.60) Mean Corpuscular Volume 87.9 fL (80.0-96.0) Mean Corpuscular Hemoglobin 26.2 pg (26.0-33.0) Mean Corpuscular Hemoglobin Concent 29.8 g/dL (32.0-36.0) Red Cell Distribution Width 13.8 % (11.5-14.5) Mean Platelet Volume 9.8 fL (7.2-11.1) Neutrophils (%) (Auto) 78.8 % (39.4-72.5) Lymphocytes (%) (Auto) 8.8 % (17.6-49.6) Monocytes (%) (Auto) 7.4 % (4.1-12.4) Eosinophils (%) (Auto) 2.3 % (0.4-6.7) Basophils (%) (Auto) 2.7 % (0.3-1.4) Nucleated RBC Relative Count (auto) 0.0 /100WBC Neutrophils # (Auto) 6.2 K/uL (2.0-7.4) Lymphocytes # (Auto) 0.7 K/uL (1.3-3.6) Monocytes # (Auto) 0.6 K/uL (0.3-1.0) Eosinophils # (Auto) 0.2 K/uL (0.0-0.5) Basophils # (Auto) 0.2 K/uL (0.0-0.1) Nucleated RBC Absolute Count (auto) 0.00 K/uL Peripheral Blood Smear Yes Y/N Sodium Level 140 mmol/L (137-145) Potassium Level 3.8 mmol/L (3.5-5.0) Chloride Level 101 mmol/L (98-107) Carbon Dioxide Level 23 mmol/L (22-30) Blood Urea Nitrogen 31 mg/dl (9-21) Creatinine 0.80 mg/dl (0.66-1.25) Glomerular Filtration Rate Calc > 60.0 Random Glucose 110 mg/dl (75-110) Calcium Level 9.7 mg/dl (8.4-10.2) Magnesium Level 2.3 mg/dl (1.7-2.2) Total Bilirubin 1.5 mg/dl (0.2-1.3) Aspartate Amino Transf (AST/SGOT) 28 U/L (0-35) Alanine Aminotransferase (ALT/SGPT) 37 U/L (0-56) Alkaline Phosphatase 61 U/L (0-126) Total Protein 8.3 g/dl (6.3-8.2) Albumin 4.9 g/dl (3.5-5.0) Salicylates Level < 10 mg/L Salicylate Last Dose Date unk Acetaminophen Level < 10 ug/ml Serum Alcohol < 10 mg/dl Urine Color Yellow Urine Clarity Clear Urine pH 5.0 pH (4.8-9.5) Urine Specific Homer 1.031 Urine Protein 30 mg/dL (NEGATIVE) Urine Glucose (UA) Negative mg/dL (NEGATIVE) Urine Ketones 20 mg/dL (NEGATIVE) Urine Blood Small (NEGATIVE) Urine Nitrite Negative (NEGATIVE) Urine Bilirubin Negative (NEGATIVE) Urine Urobilinogen 2.0 mg/dL (0.2-1.9) Urine Leukocyte Esterase Negative (NEGATIVE) Urine RBC None /HPF (0-2/HPF) Urine WBC 2 /HPF (0-5/HPF) Urine Squamous Epithelial Cells Few /LPF (</=FEW) Urine Bacteria Negative /HPF (NONE-FEW) Urine Mucus Few /HPF (NONE-FEW) Urine Opiates Screen Negative Urine Barbiturates Screen Negative Ur Tricyclic Antidepressants Screen Negative Urine Phencyclidine Screen Negative Urine Amphetamines Screen Positive Urine Benzodiazepines Screen Negative Urine Cocaine Screen Negative Urine Cannabinoids Screen Negative Chemistry Test 07/05/18 15:43 07/05/18 15:56 White Blood Count 7.8 k/uL (4.5-11.0) Red Blood Count 5.64 M/uL (4.00-5.60) Hemoglobin 14.8 g/dL (14.0-18.0) Hematocrit 49.6 % (42.0-52.0) Mean Corpuscular Volume 87.9 fL (80.0-96.0) Mean Corpuscular Hemoglobin 26.2 pg (26.0-33.0) Mean Corpuscular Hemoglobin Concent 29.8 g/dL (32.0-36.0) Red Cell Distribution Width 13.8 % (11.5-14.5) Platelet Count 165 K/uL (150-450) Mean Platelet Volume 9.8 fL (7.2-11.1) Neutrophils (%) (Auto) 78.8 % (39.4-72.5) Lymphocytes (%) (Auto) 8.8 % (17.6-49.6) Monocytes (%) (Auto) 7.4 % (4.1-12.4) Eosinophils (%) (Auto) 2.3 % (0.4-6.7) Basophils (%) (Auto) 2.7 % (0.3-1.4) Nucleated RBC Relative Count (auto) 0.0 /100WBC Neutrophils # (Auto) 6.2 K/uL (2.0-7.4) Lymphocytes # (Auto) 0.7 K/uL (1.3-3.6) Monocytes # (Auto) 0.6 K/uL (0.3-1.0) Eosinophils # (Auto) 0.2 K/uL (0.0-0.5) Basophils # (Auto) 0.2 K/uL (0.0-0.1) Nucleated RBC Absolute Count (auto) 0.00 K/uL Peripheral Blood Smear Yes Y/N Glomerular Filtration Rate Calc > 60.0 Calcium Level 9.7 mg/dl (8.4-10.2) Magnesium Level 2.3 mg/dl (1.7-2.2) Total Bilirubin 1.5 mg/dl (0.2-1.3) Aspartate Amino Transf (AST/SGOT) 28 U/L (0-35) Alanine Aminotransferase (ALT/SGPT) 37 U/L (0-56) Alkaline Phosphatase 61 U/L (0-126) Total Protein 8.3 g/dl (6.3-8.2) Albumin 4.9 g/dl (3.5-5.0) Salicylates Level < 10 mg/L Salicylate Last Dose Date unk Acetaminophen Level < 10 ug/ml Serum Alcohol < 10 mg/dl Urine Color Yellow Urine Clarity Clear Urine pH 5.0 pH (4.8-9.5) Urine Specific Homer 1.031 Urine Protein 30 mg/dL (NEGATIVE) Urine Glucose (UA) Negative mg/dL (NEGATIVE) Urine Ketones 20 mg/dL (NEGATIVE) Urine Blood Small (NEGATIVE) Urine Nitrite Negative (NEGATIVE) Urine Bilirubin Negative (NEGATIVE) Urine Urobilinogen 2.0 mg/dL (0.2-1.9) Urine Leukocyte Esterase Negative (NEGATIVE) Urine RBC None /HPF (0-2/HPF) Urine WBC 2 /HPF (0-5/HPF) Urine Squamous Epithelial Cells Few /LPF (</=FEW) Urine Bacteria Negative /HPF (NONE-FEW) Urine Mucus Few /HPF (NONE-FEW) Urine Opiates Screen Negative Urine Barbiturates Screen Negative Ur Tricyclic Antidepressants Screen Negative Urine Phencyclidine Screen Negative Urine Amphetamines Screen Positive Urine Benzodiazepines Screen Negative Urine Cocaine Screen Negative Urine Cannabinoids Screen Negative Toxicology Test 07/05/18 15:43 07/05/18 15:56 Salicylates Level < 10 mg/L Salicylate Last Dose Date unk Acetaminophen Level < 10 ug/ml Serum Alcohol < 10 mg/dl Urine Opiates Screen Negative Urine Barbiturates Screen Negative Ur Tricyclic Antidepressants Screen Negative Urine Phencyclidine Screen Negative Urine Amphetamines Screen Positive Urine Benzodiazepines Screen Negative Urine Cocaine Screen Negative Urine Cannabinoids Screen Negative Urinalysis Test 07/05/18 15:56 Urine Color Yellow Urine Clarity Clear Urine pH 5.0 pH (4.8-9.5) Urine Specific Homer 1.031 Urine Protein 30 mg/dL (NEGATIVE) Urine Glucose (UA) Negative mg/dL (NEGATIVE) Urine Ketones 20 mg/dL (NEGATIVE) Urine Blood Small (NEGATIVE) Urine Nitrite Negative (NEGATIVE) Urine Bilirubin Negative (NEGATIVE) Urine Urobilinogen 2.0 mg/dL (0.2-1.9) Urine Leukocyte Esterase Negative (NEGATIVE) Urine RBC None /HPF (0-2/HPF) Urine WBC 2 /HPF (0-5/HPF) Urine Squamous Epithelial Cells Few /LPF (</=FEW) Urine Bacteria Negative /HPF (NONE-FEW) Urine Mucus Few /HPF (NONE-FEW) ED Course/Re-evaluation ED Course The patient was admitted to a room. History and physical obtained. Differential diagnoses were considered. A CBC, CMP and psych panel were obtained. Lab studies are unremarkable.Patient was positive for amphetamines, negative serum alcohol, urine showing ketones and small blood, patient does have a history of ketonuria as well as hematuria. I did speak with Dr. Howe as noted below, the psychologist on-call she's accept the patient in the behavioral health unit, the patient is aware that he will be admitted to unit, does understand that he is detained. Patient has been compliant since in the ER. No other questions or concerns at this time. Patient was escorted to the behavioral health unit with staff as well as PD. 07/05/2018 5:03:35 pm I did speak with Dr. Howe, the psychologist union organizer, she has accepted the patient at the behavioral health unit. I did up hold the police detainment. I did explain this to the patient, patient understands that he will be admitted to the behavioral health unit. Patient's his less anxious, not tearful at this time. Decision to Disposition Date: Jul 05, 2018 Decision to Disposition Time: 17:03 Depart Departure Latest Vital Signs Vital Signs Date Time Temp Pulse Resp B/P (MAP) Pulse Ox O2 Delivery O2 Flow Rate FiO2 07/05/18 16:49 ??? 07/05/18 16:30 ???/??? (1665) 07/05/18 15:34 94 07/05/18 15:06 98.2 18 Room Air Impression: Primary Impression: Suicidal ideations Condition: Improved Disposition: XFER TO [facility] RAMYA SANTOS HAULING CONTRACTOR-BC Jul 05, 2018 15:18
--- NOTE | 2018-07-05 16:00 | BHS - Psychiatric Evaluation ---
ER - Title 25 MHE Evaluation Title 25 Evaluation Patient Detained By: Other (Nurse Practitioner) Referral Source: [place] Date Patient Detained: Jul 05, 2018 Time Patient Detained: 15:15 Date Residential Expires: Jul 09, 2018 Time Residential Expires: 15:15 Legal Status: Police Hold: Yes Legal Status: Residence: [facility] Resident Assessment Data Provided By: Patient, Law Enforcement HPI/ROS: This is a 38-year-old male presents to the emergency department, with the [place] [employer] for an emergency snf. Patient was just released from the [facility], he was in [facility]p for a protective order violation, states he has an amended protective order from his , was going to see his in a public place, there is some confusion apparently and he thought he violated a protective order, the police arrested him on site. Patient was returned full and upset, states his kid's sign get arrested they've never seen this before. He stated that he wanted to kill himself, he did tell me the same that he wanted to kill himself however in a nonviolent type of way, he states he would stop drinking and eating. Patient does state that he is hard broken his is his Leobardo and is very sad that things have ended up this way. Patient is tearful and crying obviously very upset. Denies drinking alcohol. Patient does state that he is a recovering heroin and intact and went to get his Suboxone filled as well as his Paxil on Sunday however he was unable to. Patient denies homicidal ideation. Patient did have a previous suicide attempt in 2013 and he split up from his . Denies chest pain or shortness of breath. No nausea or vomiting. Admit due to SI or Attempt: Yes Suicide Plan: No Plan Current Suicide Plan Stop eating and drinking. Alcohol or Drugs Involved: No Is Patient Info Reliable: Yes Is Collateral Info Reliable: Yes Mental Status Exam General Appearance: Well Groomed, Cooperative, Polite, Good Interaction, Tearful Speech: Clear, Spontaneous, Other (Rapid rate and quiet) Mood: Dysthmic/Depressed Affect: Sad, Tearful Thought Process: Logical Thought Content: Suicidal Ideation Sensorium: Clear Cognition: Alert & Oriented-Person Memory: Immediate Insight Judgment: Intact Sleep: Insomnia Hallucinations: Denies Delusions: Denies Current Risk & History Current Dangerous Risk Assessm: Current Suicide Ideation Past Dangerous Risk Assessm: Suicide Ideation-last 6mo Prior Alcohol/Drug Abuse Hx Heroin use, now take Suboxone. Previous Suicide Attempt: Past - High Lethality Previous Psychiatric Illness: Yes (Depression) Previous Psychiatric Treatment: Yes Risk Assessment & Disposition Evaluated Risk Assessment: Suicidal ideation Impression: Primary Impression: Suicidal ideations Meets Mental Illness Req.: Yes Meets Dangerousness Req.: Yes Emergency Residential to be: Upheld Date of Decision: Jul 05, 2018 Time of Decision: 16:00 Patient is Medically Stable at: Yes Disposition: RAMYA BAUERP- Jul 05, 2018 16:00
[2018-07-05 16:12] LABS: PLATELET COUNT, AUTOMATED 165 K/uL (150-450)
[2018-07-05] MEDS ORDERED: BUPR1FIL7 SL (17:02)
[2018-07-05] MEDS ORDERED: FLUO-202 PO (17:02)
== END 2018-07-05 17:25 ==
LOC: ER 15:26
DX: R45.851 Suicidal ideations (principal)
CPT/HCPCS: 36415; 80305; 80320; 80329; 81001; 82040; 82247; 82310; 82374; 82435; 82565; 82947; 83735; 84075; 84132; 84155; 84295; 84443; 84450; 84460; 84520; 85025; 99284

== ENCOUNTER 2018-07-05 17:08 | Inpatient (IN) | payer OTHER ==
[~2018-07-05 17:08] MED LIST changes: +BUPR1FIL7 SL; +FLUO-202 PO
[2018-07-05 18:00] VITALS: BP 104/108
[2018-07-05] MEDS ORDERED: MAG HYD/AL HYD/SIMETH 30ML UDC PO PRN (18:35)
[2018-07-05] MEDS ORDERED: BENZOCAINE 20% 11.9 GM TUBE 11.9 GM TUBE DT PRN (19:15)
[2018-07-05] MEDS: ACETAMINOPHEN 325 MG TAB PO PRN (19:43)
[2018-07-06 06:14] VITALS: BP 132/69
[2018-07-06] MEDS: ACETAMINOPHEN 325 MG TAB PO PRN ×2 (07:56→16:03)
[2018-07-06] MEDS: MULTIVITAMINS PO SCH (07:56)
[2018-07-06] MEDS ORDERED: INFLUENZA VIRUS VAC 0.5ML SYR IM ONLY ONE (10:10)
[2018-07-06 11:30] VITALS: BP 120/68
[2018-07-06] MEDS: FLUoxetine HCL 20 MG CAP PO SCH (13:04)
[2018-07-06] MEDS: IBUPROFEN 800 MG TAB PO PRN (13:39)
[2018-07-06] MEDS ORDERED: AMOXICILLIN 500 MG CAP PO ONE (14:00)
[2018-07-06] MEDS: AMOXICILLIN 500 MG CAP PO SCH (20:42)
[2018-07-06] MEDS: TEMAZEPAM 15 MG CAP PO PRN (20:47)
[2018-07-06 21:04] VITALS: BP 108/79
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
[2018-07-07] MEDS: AMOXICILLIN 500 MG CAP PO SCH ×3 (06:03→17:35)
[2018-07-07 06:32] VITALS: BP 127/77
[2018-07-07] MEDS: IBUPROFEN 800 MG TAB PO PRN ×2 (09:14→17:35)
[2018-07-07] MEDS: FLUoxetine HCL 20 MG CAP PO SCH (09:14)
[2018-07-07] MEDS: MULTIVITAMINS PO SCH (09:14)
[2018-07-07 11:43] VITALS: BP 112/64
--- NOTE | 2018-07-07 13:10 | Antimicrobial Stewardship ---
Antimicrobial Stewardship Empiricly appropriate: Yes Comment On Amoxicillin 500 mg po qid for tooth abscess. Approriate Cultures done: No Reviewed for Drug Interaction: Yes Monitored for Toxicities: Yes Determine standard duration: 10 days NIK MICHAEL Jul 07, 2018 13:10
[2018-07-07] MEDS ORDERED: BENZ9GEL5 DT (16:23)
[2018-07-07] MEDS ORDERED: AMOX500T10 PO (16:23)
[2018-07-07] MEDS ORDERED: IBUP800T37 PO (16:24)
[2018-07-07] MEDS ORDERED: ACET-1966 PO (16:25)
[2018-07-07] MEDS: ACETAMINOPHEN 325 MG TAB PO PRN (17:35)
[2018-07-07] MEDS: TEMAZEPAM 15 MG CAP PO PRN (17:48)
--- NOTE | 2018-07-09 06:47 | DISCHARGE SUMMARY ---
DATE OF ADMISSION: July 05, 2018 DATE OF DISCHARGE: July 07, 2018 ATTENDING PHYSICIAN Ina Rosa DO DATE AND TIME SEEN July 07, 2018 at 16:00 hours. FINAL DIAGNOSIS 1. Major depression, recurrent. 2. Narcotic abuse disorder. 3. Methamphetamine use disorder. 4. Post traumatic stress disorder. 5. Dental abscesses with broken teeth. REASON FOR ADMISSION Mr. Soto was admitted through the emergency room on an involuntary basis when he was picked up by the police after he and his were seen together in [place]. There is a protective order in place and someone who knew the patient and knew about the protective order, saw them together and called the police. After the police found Mr. Soto and talked with him, it was discovered that he also has an outstanding warrant for failure to pay child support. They were in the process of taking him to group home when he began talking about having no reason to live any longer and wanted to kill himself. He was brought to the emergency room instead. PHYSICAL EXAMINATION GENERAL: Please see emergency room note. Physical examination was notable for two decaying molars and lymphadenopathy on the right jaw. VITAL SIGNS: On admission Pulse 100, Temp 98.2, Respirations 18, Blood Pressure 134/101, Pulse Ox 93% on room air. LABORATORY EVALUATION Laboratory tests were significant for a urine toxicology positive for amphetamine. Blood alcohol was negative. Urine showed ketones and a small amount of blood. BUN was 31 and creatinine 0.8. MENTAL STATUS EXAM AT THE TIME OF DISCHARGE I met with the patient throughout his hospitalization and on the afternoon of discharge about 16:00 hours. He showed tremendous improvement as far as his mood and affect throughout his hospitalization and he was no longer tearful, complaining of depression, and making reasonable goals and his plans to address his legal and personal difficulties. Grooming was good, attitude cooperative with good eye contact, answers were appropriate and spontaneous. He was alert, oriented at all spheres and denying any suicidal plans or impulses. He also denied thoughts about violence towards others. He denied auditory or visual hallucinations. Memory appeared intact in all spheres. TREATMENT During this hospitalization Mr. Soto was treated initially with suicide precautions and close observation. We continued Prozac 20 mg which was recently started by another provider in [place] for his depression. He was also prescribed Suboxone but we did not continue that in the hospital. I also started him on Amoxil for two abscessed teeth. HOSPITAL COURSE Mr. Soto responded particularly well to this hospitalization and began making appropriate plans to address his legal and personal difficulties. He contacted the courts to find out more about his outstanding charges for failure to pay child support to his ex- in [place]. He learned that he needs to appear before the [facility] judge Sunday morning at 9 a.m. and was requesting to be released to the custody of the police so that he could make that appearance. He also was making appropriate plans to follow up with his [employer]oc plans intelligence officer chief in [place] as required by the terms of his probation. CONDITION OF PATIENT ON DISCHARGE Mr. Soto was considered greatly improved and a minimal risk to himself or others and appropriate for outpatient care. DISPOSITION I agreed to allow Mr. Soto to be released on Sunday, July 07, 2018 so that he could follow through with his plans to meet the associate juvenile court judge in the morning. We continued his Prozac and I also instructed him to continue the Suboxone which had been prescribed by a provider in [place] once he is able to access that medication. I gave him a prescription for Amoxil for his teeth and he has an appointment to see a dentist in 4 days and I encouraged him to keep that appointment. He knows that he is to abstain from all alcohol and drugs and to continue outpatient treatment. His plan is to go to [facility] as soon as possible for an intake and to resume mental health care. He also agreed to contact the crisis line should his symptoms recur. VIKA
== END 2018-07-07 17:52 | DRG 885 ==
LOC: BHS 17:08
PROVIDERS: ADMIT Psychiatry & Neurology Psychiatry; ATTEND Psychiatry & Neurology Psychiatry
DX: F33.9 Major depressive disorder, recurrent, unspecified (principal); F43.12 Post-traumatic stress disorder, chronic; F15.10 Other stimulant abuse, uncomplicated; F11.90 Opioid use, unspecified, uncomplicated; K04.7 Periapical abscess without sinus; K08.89 Other specified disorders of teeth and supporting structures; R63.4 Abnormal weight loss; Z23 Encounter for immunization; Z59.0 Homelessness; Z91.5 Personal history of self-harm; Z86.59 Personal history of other mental and behavioral disorders; Z56.0 Unemployment, unspecified; Z63.5 Disruption of family by separation and divorce; Z59.8 Other problems related to housing and economic circumstances
CPT/HCPCS: 90471; 90674